=== PATIENT | female | born 1970 | race Two or more races ===

== ENCOUNTER 2022-04-25 12:18 | Inpatient (IN) | payer OTHER ==
[~2022-04-25] VITALS: Ht 154.9 cm; Wt 61.3 kg
[2022-04-25 13:38] LABS: Basophils # (auto) 0.1 10 ^3/uL (0-0.2); Basophils % (auto) 1.6 % (0.0-2.0); Eosinophils # (auto) 0.1 10 ^3/uL (0-0.8); Eosinophils % (auto) 0.7 % (0.0-7.0); Hematocrit 39.8 % (36.0-46.0); Hemoglobin 12.8 g/dL (12.2-16.2); Lymphocytes # (auto) 1.6 10 ^3/uL (0.4-5.4); Mean Corpuscular Hemoglobin 27.1 pg (28.0-32.0); Mean Corpuscular Hgb Conc. 32.3 g/dL (32.0-36.0); Mean Corpuscular Volume 83.8 fL (80.0-100.0); Monocytes # (auto) 0.4 10 ^3/uL (0-1.3); Monocytes % (auto) 4.7 % (0.0-12.0); Neutrophils # (auto) 5.6 10 ^3/uL (1.6-8.6); Red Blood Cells 4.74 10^6/uL (4.0-5.20); White Blood Cell 7.8 10^3/uL (4.4-10.8)
[2022-04-25 13:54] LABS: Albumin 4.1 g/dL (3.4-5.0); Calcium 9.4 mg/dL (8.5-10.1); Potassium 4.9 mmol/L (3.5-5.1)
[2022-04-25 13:57] LABS: BUN/Creatinine Ratio 26.8
[2022-04-25 14:03] LABS: Bilirubin, Total 0.3 mg/dL (0.2-1.0); Total Protein 7.8 g/dL (6.4-8.2)
[2022-04-25] MEDS ORDERED: KETOROLAC TROMETH 30 MG/ML 1ML VIAL IV ONE (17:00)
[2022-04-25] MEDS ORDERED: SODIUM CHLORIDE 0.9% 1,000 ML IV ONE ×2 (17:00)
[2022-04-25] MEDS ORDERED: TAMSULOSIN HYDROCHLORIDE 0.4 MG CAP PO ONE (17:00)
[2022-04-25] MEDS ORDERED: DOCUSATE SOD 100 MG CAP PO PRN (19:00)
[2022-04-25] MEDS ORDERED: LACTATED RINGER'S 1,000 ML IV ONE (19:00)
[2022-04-25] MEDS: HYDROmorphone HCL 2 MG/ML VL/or syr IV PRN (20:06)
[2022-04-25] MEDS: ONDANSETRON HCL 4 MG/2 ML VIAL IV PRN (20:11)
[2022-04-25 22:05] VITALS: BP 114/57
[2022-04-25] MEDS: SODIUM CHLOR 0.9% PF (SALINE LOCK) 10ML VIAL/SYR IV SCH (22:09)
[2022-04-25] MEDS ORDERED: METF-370 PO (22:22)
[2022-04-25] MEDS ORDERED: OMEP20TA PO (22:22)
[2022-04-25] MEDS ORDERED: ATOR10TA52 PO (22:22)
[2022-04-25] MEDS ORDERED: LISIPOW XX (22:22)
[2022-04-25] MEDS ORDERED: LEV50T PO (22:22)
[2022-04-25 23:17] LABS: Urine Bacteria NONE SEEN /hpf (None Seen); Urine Blood Negative /uL (Negative); Urine Mucus FEW (None Seen); Urine Specific Gravity 1.009 (1.001-1.035); Urine WBC 10 /hpf (0 - 5)
[2022-04-26] MEDS: HYDROmorphone HCL 2 MG/ML VL/or syr IV PRN ×2 (01:43→15:24)
[2022-04-26] MEDS: ONDANSETRON HCL 4 MG/2 ML VIAL IV PRN (03:28)
[2022-04-26 05:00] VITALS: BP 108/56
[2022-04-26] MEDS: SODIUM CHLOR 0.9% PF (SALINE LOCK) 10ML VIAL/SYR IV SCH ×3 (05:38→22:15)
[2022-04-26 09:00] VITALS: BP 114/68
[2022-04-26 13:00] VITALS: BP 102/57
[2022-04-26] MEDS: metFORMIN HYDROCHLORIDE 850 MG TAB PO SCH ×2 (14:53→22:00)
[2022-04-26] MEDS: D5W/SOD CHL 0.45%/KCL 20MEQ 1,000 ML IV SCH (15:23)
[2022-04-26 15:36] LABS: INR 1.03 (0.9-1.15); Partial Thromboplastin Time 27.9 sec (24.6-33.4)
[2022-04-26 16:27] VITALS: BP 108/72
[2022-04-26 16:32] VITALS: BP 125/72
[2022-04-26 22:00] VITALS: BP 130/64
[2022-04-26] MEDS: ATORVASTATIN 20 MG TAB PO SCH (22:20)
[2022-04-26] MEDS: HYDROcodone-ACET 5/325MG TAB PO PRN (22:28)
[2022-04-27] MEDS: D5W/SOD CHL 0.45%/KCL 20MEQ 1,000 ML IV SCH ×4 (00:12→23:44)
[2022-04-27] MEDS: ONDANSETRON HCL 4 MG/2 ML VIAL IV PRN (00:24)
[2022-04-27] MEDS: HYDROmorphone HCL 2 MG/ML VL/or syr IV PRN ×2 (00:25→13:57)
[2022-04-27 05:00] VITALS: BP 121/62
[2022-04-27] MEDS: metFORMIN HYDROCHLORIDE 850 MG TAB PO SCH ×3 (05:25→22:00)
[2022-04-27 06:30] LABS: Potassium 4.7 mmol/L (3.5-5.1)
[2022-04-27 06:39] LABS: BUN/Creatinine Ratio 11.1; Bilirubin, Total 0.4 mg/dL (0.2-1.0); Calcium 8.1 mg/dL (8.5-10.1); Total Protein 6.3 g/dL (6.4-8.2)
[2022-04-27] MEDS: SODIUM CHLOR 0.9% PF (SALINE LOCK) 10ML VIAL/SYR IV SCH ×3 (06:44→22:06)
[2022-04-27] MEDS: LEVOTHYROXINE SODIUM 25 MCG TAB PO SCH (06:55)
[2022-04-27 07:02] LABS: Basophils # (auto) 0.1 10 ^3/uL (0-0.2); Eosinophils # (auto) 0.1 10 ^3/uL (0-0.8); Eosinophils % (auto) 2.3 % (0.0-7.0); Hematocrit 33.8 % (36.0-46.0); Hemoglobin 11.5 g/dL (12.2-16.2); Lymphocytes % (auto) 34.6 % (10.0-50.0); Mean Corpuscular Hemoglobin 28.3 pg (28.0-32.0); Mean Corpuscular Hgb Conc. 33.9 g/dL (32.0-36.0); Mean Corpuscular Volume 83.4 fL (80.0-100.0); Monocytes # (auto) 0.3 10 ^3/uL (0-1.3); Monocytes % (auto) 5.6 % (0.0-12.0); Neutrophils # (auto) 3.2 10 ^3/uL (1.6-8.6); Neutrophils % (auto) 55.5 % (37.0-80.0); Red Blood Cells 4.05 10^6/uL (4.0-5.20); Red Cell Distribution Width 13.5 % (11.8-14.3); White Blood Cell 5.8 10^3/uL (4.4-10.8)
[2022-04-27 08:53] VITALS: BP 126/63
[2022-04-27] MEDS: PANTOPRAZOLE 40 MG TAB PO SCH (10:00)
[2022-04-27] MEDS: LISINOPRIL 5 MG TAB PO SCH (10:00)
[2022-04-27] MEDS: ACETAMINOPHEN 325 MG TAB PO PRN (12:58)
[2022-04-27 13:00] VITALS: BP 135/58
[2022-04-27 17:15] VITALS: BP 107/53
[2022-04-27] MEDS: ATORVASTATIN 20 MG TAB PO SCH (21:40)
[2022-04-27 22:00] VITALS: BP 114/67
[2022-04-28 04:40] VITALS: BP_SYST 113; BP_SYST 122; BP_DIAS 65; BP_DIAS 75
[2022-04-28] MEDS ORDERED: SUCCINYLCHOLINE CHLORIDE 20 MG/ML 10ML VIAL IV ONE (07:57)
[2022-04-28] MEDS ORDERED: ceFAZolin 1GM/50ML 100 ML IV ONE (08:05)
[2022-04-28] MEDS ORDERED: MIDAZOLAM HCL 2MG/2ML 2ml VIAL (1mg/ml) ONE (08:07)
[2022-04-28] MEDS ORDERED: fentaNYL CITRATE 100 MCG/2 ML VL ONE (08:07)
[2022-04-28] MEDS ORDERED: MEPERIDINE HCL (50 MG/ML) 1 ML VIAL ONE (08:07)
[2022-04-28] MEDS ORDERED: MIDAZOLAM HCL 2MG/2ML 2ml VIAL (1mg/ml) IV PRN (08:15)
[2022-04-28] MEDS ORDERED: LABETALOL HCL 5 MG/ML 4ML SYRINGE IV PRN (08:15)
[2022-04-28] MEDS ORDERED: ONDANSETRON HCL 4 MG/2 ML VIAL IV PRN (08:15)
[2022-04-28] MEDS ORDERED: ePHEDrine SULFATE 50 MG/ML AMP IV PRN (08:15)
[2022-04-28] MEDS ORDERED: HYDROmorphone HCL 2 MG/ML VL/or syr IV PRN (08:15)
[2022-04-28] MEDS ORDERED: MORPHINE SULFATE 4 MG/ML SYR/VIAL IV PRN (08:15)
[2022-04-28] MEDS ORDERED: LIDOCAINE 1%-Mpf/Epinephrine 1:200,000 ONE (08:19)
[2022-04-28] MEDS ORDERED: PROPOFOL 10 MG/ML 20 ML IV ONE (08:58)
[2022-04-28] MEDS ORDERED: DexAMETHasone SOD PHOS 10MG/1ML VIAL INJ ONE (08:58)
[2022-04-28 09:00] VITALS: BP 138/78
[2022-04-28] MEDS ORDERED: ONDANSETRON HCL 4 MG/2 ML VIAL ONE (09:06)
[2022-04-28] MEDS: SODIUM CHLOR 0.9% PF (SALINE LOCK) 10ML VIAL/SYR IV SCH ×3 (09:08→22:00)
[2022-04-28] MEDS ORDERED: ROCURONIUM 10MG/ML 10ML VIAL IV ONE (09:08)
[2022-04-28] MEDS: metFORMIN HYDROCHLORIDE 850 MG TAB PO SCH ×3 (09:08→21:38)
[2022-04-28] MEDS: LEVOTHYROXINE SODIUM 25 MCG TAB PO SCH (09:09)
[2022-04-28] MEDS: PANTOPRAZOLE 40 MG TAB PO SCH (10:00)
[2022-04-28] MEDS: LISINOPRIL 5 MG TAB PO SCH (10:00)
[2022-04-28] MEDS: D5W/SOD CHL 0.45%/KCL 20MEQ 1,000 ML IV SCH ×3 (10:02→21:48)
[2022-04-28] MEDS: HYDROmorphone HCL 2 MG/ML VL/or syr IV PRN ×3 (10:45→17:43)
[2022-04-28] MEDS: BUPIVACAINE 0.25% INJ 50ML VIAL ONE (12:40)
[2022-04-28] MEDS: HYDROcodone-ACET 5/325MG TAB PO PRN (13:24)
[2022-04-28] MEDS ORDERED: PHENYLEPHRINE HCL 10 MG/ML VL IV ONE (16:33)
[2022-04-28] MEDS ORDERED: GLYCOPYRROLATE 0.2 MG/ML 1ML VIAL IV ONE (16:33)
[2022-04-28] MEDS ORDERED: NEOSTIGMINE 1 MG/ML INJ (10mg/10ML VIAL) IV ONE (16:33)
[2022-04-28 17:00] VITALS: BP_SYST 137; BP_SYST 138; BP_DIAS 78; BP_DIAS 89
[2022-04-28] MEDS: ATORVASTATIN 20 MG TAB PO SCH (21:38)
[2022-04-28] MEDS: ONDANSETRON HCL 4 MG/2 ML VIAL IV PRN (21:48)
[2022-04-28 22:00] VITALS: BP 128/77
[2022-04-29] MEDS: HYDROcodone-ACET 5/325MG TAB PO PRN (02:30)
[2022-04-29 05:00] VITALS: BP 143/87
[2022-04-29] MEDS: LEVOTHYROXINE SODIUM 25 MCG TAB PO SCH (06:24)
[2022-04-29] MEDS: metFORMIN HYDROCHLORIDE 850 MG TAB PO SCH ×3 (06:24→21:28)
[2022-04-29] MEDS: SODIUM CHLOR 0.9% PF (SALINE LOCK) 10ML VIAL/SYR IV SCH ×3 (06:25→22:00)
[2022-04-29] MEDS: ACETAMINOPHEN 325 MG TAB PO PRN (06:32)
[2022-04-29] MEDS: HYDROmorphone HCL 2 MG/ML VL/or syr IV PRN ×2 (06:49→21:31)
[2022-04-29 06:51] LABS: Basophils # (auto) 0.1 10 ^3/uL (0-0.2); Basophils % (auto) 0.4 % (0.0-2.0); Eosinophils # (auto) 0 10 ^3/uL (0-0.8); Hematocrit 33.7 % (36.0-46.0); Hemoglobin 11.3 g/dL (12.2-16.2); Lymphocytes # (auto) 1.6 10 ^3/uL (0.4-5.4); Lymphocytes % (auto) 13.8 % (10.0-50.0); Mean Corpuscular Hgb Conc. 33.5 g/dL (32.0-36.0); Mean Corpuscular Volume 83.5 fL (80.0-100.0); Monocytes # (auto) 0.7 10 ^3/uL (0-1.3); Monocytes % (auto) 5.6 % (0.0-12.0); Neutrophils # (auto) 9.5 10 ^3/uL (1.6-8.6); Neutrophils % (auto) 80.2 % (37.0-80.0); Red Blood Cells 4.03 10^6/uL (4.0-5.20); White Blood Cell 11.8 10^3/uL (4.4-10.8)
[2022-04-29 08:47] VITALS: BP 119/63
[2022-04-29] MEDS: BUPIVACAINE 0.25% INJ 50ML VIAL ONE (08:54)
[2022-04-29] MEDS: LISINOPRIL 5 MG TAB PO SCH (10:00)
[2022-04-29] MEDS: D5W/SOD CHL 0.45%/KCL 20MEQ 1,000 ML IV SCH ×3 (10:15→21:29)
[2022-04-29 13:00] VITALS: BP_SYST 116; BP_SYST 122; BP_DIAS 74; BP_DIAS 84
[2022-04-29 17:07] VITALS: BP 120/70
[2022-04-29] MEDS: SUCRALFATE 1 GM TAB PO SCH (21:29)
[2022-04-29] MEDS: ATORVASTATIN 20 MG TAB PO SCH (21:29)
[2022-04-29] MEDS: PANTOPRAZOLE 40 MG TAB PO SCH (21:29)
[2022-04-29 22:00] VITALS: BP 138/69
[2022-04-30 05:00] VITALS: BP 144/73
[2022-04-30] MEDS: SODIUM CHLOR 0.9% PF (SALINE LOCK) 10ML VIAL/SYR IV SCH ×3 (06:00→22:13)
[2022-04-30 06:57] LABS: Basophils # (auto) 0.1 10 ^3/uL (0-0.2); Basophils % (auto) 1.1 % (0.0-2.0); Eosinophils # (auto) 0.1 10 ^3/uL (0-0.8); Eosinophils % (auto) 0.9 % (0.0-7.0); Hematocrit 34.7 % (36.0-46.0); Hemoglobin 11.4 g/dL (12.2-16.2); Lymphocytes # (auto) 1.7 10 ^3/uL (0.4-5.4); Lymphocytes % (auto) 20.4 % (10.0-50.0); Mean Corpuscular Hemoglobin 27.9 pg (28.0-32.0); Mean Corpuscular Hgb Conc. 32.8 g/dL (32.0-36.0); Mean Corpuscular Volume 84.9 fL (80.0-100.0); Monocytes # (auto) 0.5 10 ^3/uL (0-1.3); Neutrophils # (auto) 5.9 10 ^3/uL (1.6-8.6); Neutrophils % (auto) 71.6 % (37.0-80.0); Nucleated Red Blood Cells % 0.1 %; Red Blood Cells 4.08 10^6/uL (4.0-5.20); Red Cell Distribution Width 13.4 % (11.8-14.3); White Blood Cell 8.2 10^3/uL (4.4-10.8)
[2022-04-30] MEDS: LEVOTHYROXINE SODIUM 25 MCG TAB PO SCH (07:07)
[2022-04-30] MEDS: SUCRALFATE 1 GM TAB PO SCH ×4 (07:07→22:16)
[2022-04-30] MEDS: metFORMIN HYDROCHLORIDE 850 MG TAB PO SCH ×3 (07:07→21:56)
[2022-04-30 07:08] LABS: Albumin 2.7 g/dL (3.4-5.0); Calcium 8.3 mg/dL (8.5-10.1)
[2022-04-30 07:13] LABS: BUN/Creatinine Ratio 11.3; Bilirubin, Total 0.3 mg/dL (0.2-1.0); Total Protein 6.1 g/dL (6.4-8.2)
[2022-04-30] MEDS: ONDANSETRON HCL 4 MG/2 ML VIAL IV PRN (08:47)
[2022-04-30] MEDS: HYDROmorphone HCL 2 MG/ML VL/or syr IV PRN (08:48)
[2022-04-30] MEDS: PANTOPRAZOLE 40 MG TAB PO SCH ×2 (08:48→21:55)
[2022-04-30] MEDS: LISINOPRIL 5 MG TAB PO SCH (08:49)
[2022-04-30 08:54] VITALS: BP 142/75
[2022-04-30] MEDS ORDERED: METR500T PO (09:30)
[2022-04-30] MEDS ORDERED: LEVO500T31 PO (09:30)
[2022-04-30] MEDS ORDERED: HYDR-4902 PO (09:30)
[2022-04-30] MEDS ORDERED: SUCR1TAB PO (09:36)
[2022-04-30] MEDS ORDERED: PANT40T PO (09:36)
[2022-04-30] MEDS: D5W/SOD CHL 0.45%/KCL 20MEQ 1,000 ML IV SCH ×2 (10:25→17:24)
[2022-04-30] MEDS: SODIUM CHLORIDE 0.9% 1,000 ML IV SCH ×3 (11:03→17:24)
[2022-04-30 12:41] VITALS: BP 121/58
[2022-04-30] MEDS ORDERED: HYDROcodone-ACET 5/325MG TAB PO PRN (15:00)
[2022-04-30 16:55] VITALS: BP_SYST 124; BP_SYST 139; BP_DIAS 81; BP_DIAS 82
[2022-04-30] MEDS: ATORVASTATIN 20 MG TAB PO SCH (21:55)
[2022-04-30 22:00] VITALS: BP 148/75
[2022-05-01] MEDS: SODIUM CHLORIDE 0.9% 1,000 ML IV SCH ×2 (02:58→11:53)
[2022-05-01] MEDS: D5W/SOD CHL 0.45%/KCL 20MEQ 1,000 ML IV SCH ×2 (03:05→11:25)
[2022-05-01 05:00] VITALS: BP 143/77
[2022-05-01] MEDS: metFORMIN HYDROCHLORIDE 850 MG TAB PO SCH (05:58)
[2022-05-01] MEDS: SUCRALFATE 1 GM TAB PO SCH ×2 (05:58→11:56)
[2022-05-01] MEDS: SODIUM CHLOR 0.9% PF (SALINE LOCK) 10ML VIAL/SYR IV SCH (05:58)
[2022-05-01] MEDS: LEVOTHYROXINE SODIUM 25 MCG TAB PO SCH (05:58)
[2022-05-01 09:00] VITALS: BP 144/79
[2022-05-01] MEDS: LISINOPRIL 5 MG TAB PO SCH (10:05)
[2022-05-01] MEDS: PANTOPRAZOLE 40 MG TAB PO SCH (10:05)
[2022-05-01 13:00] VITALS: BP 140/76
== END 2022-05-01 14:20 | disposition home or self-care (01) | DRG 263 ==
LOC: ER 12:18 → OVERFLOW 18:57 → WEST WING 23:58
PROVIDERS: ADMIT Internal Medicine; ATTEND Family Medicine
PROC: 0FT40ZZ Resection of Gallbladder, Open Approach (ICD-10-PCS; principal; 2022-04-28 08:25)
DX: K80.10 Calculus of gallbladder with chronic cholecystitis without obstruction (principal); K85.90 Acute pancreatitis without necrosis or infection, unspecified; E11.9 Type 2 diabetes mellitus without complications; I10 Essential (primary) hypertension; K66.0 Peritoneal adhesions (postprocedural) (postinfection); N21.0 Calculus in bladder; Z83.3 Family history of diabetes mellitus; Z82.49 Family history of ischemic heart disease and other diseases of the circulatory system; Z87.442 Personal history of urinary calculi; Z20.822 Contact with and (suspected) exposure to COVID-19
CPT/HCPCS: 36415; 71045; 74176; 74181; 76705; 80053; 81001; 82247; 82962; 83605; 83690; 84702; 85025; 85610; 85730; 86850; 86900; 86901; 87040; 93005; 96361; 96374; 96375; G0378; J0330; J0690; J1100; J1885; J2250; J2405; J2704; J3490

== ENCOUNTER 2022-05-04 06:10 | Emergency (ER) | payer OTHER ==
[~2022-05-04] VITALS: Ht 157.5 cm; Wt 54.5 kg
[~2022-05-04 06:10] MED LIST: ATOR10TA52 PO; HYDR-4902 PO; LEV50T PO; LEVO500T31 PO; LISIPOW XX; METF-370 PO; METR500T PO; OMEP20TA PO; PANT40T PO; SUCR1TAB PO
[2022-05-04 06:47] LABS: Basophils # (auto) 0.1 10 ^3/uL (0-0.2); Eosinophils # (auto) 0.2 10 ^3/uL (0-0.8); Eosinophils % (auto) 3.2 % (0.0-7.0); Hematocrit 37.1 % (36.0-46.0); Hemoglobin 12.3 g/dL (12.2-16.2); Lymphocytes # (auto) 1.4 10 ^3/uL (0.4-5.4); Lymphocytes % (auto) 18.6 % (10.0-50.0); Mean Corpuscular Hemoglobin 27.4 pg (28.0-32.0); Mean Corpuscular Hgb Conc. 33.2 g/dL (32.0-36.0); Mean Corpuscular Volume 82.5 fL (80.0-100.0); Monocytes # (auto) 0.3 10 ^3/uL (0-1.3); Monocytes % (auto) 4.6 % (0.0-12.0); Neutrophils # (auto) 5.4 10 ^3/uL (1.6-8.6); Neutrophils % (auto) 72.6 % (37.0-80.0); Red Blood Cells 4.49 10^6/uL (4.0-5.20); Red Cell Distribution Width 13.1 % (11.8-14.3); White Blood Cell 7.4 10^3/uL (4.4-10.8)
[2022-05-04 07:03] LABS: Potassium 3.7 mmol/L (3.5-5.1)
[2022-05-04 07:10] LABS: Albumin 3.4 g/dL (3.4-5.0); Bilirubin, Total 0.4 mg/dL (0.2-1.0); Calcium 9.1 mg/dL (8.5-10.1); Total Protein 7.3 g/dL (6.4-8.2)
[2022-05-04 09:08] VITALS: BP 116/55
== END 2022-05-04 09:41 | disposition home or self-care (01) ==
LOC: ER 06:10
DX: I10 Essential (primary) hypertension (principal); E11.9 Type 2 diabetes mellitus without complications; Z90.49 Acquired absence of other specified parts of digestive tract; Z79.2 Long term (current) use of antibiotics; Z79.899 Other long term (current) drug therapy
CPT/HCPCS: 36415; 71045; 80053; 83880; 84484; 85025; 93005

== ENCOUNTER 2023-11-11 10:01 | Emergency (ER) | payer MEDICAID, OTHER ==
[~2023-11-11] VITALS: Ht 154.9 cm; Wt 60.7 kg
[2023-11-11 10:52] LABS: Basophils # (auto) 0.2 10 ^3/uL (0-0.2); Basophils % (auto) 2.9 % (0.0-2.0); Eosinophils # (auto) 0.1 10 ^3/uL (0-0.8); Eosinophils % (auto) 1.5 % (0.0-7.0); Hematocrit 40.7 % (36.0-46.0); Hemoglobin 13.5 g/dL (12.2-16.2); Lymphocytes # (auto) 1.6 10 ^3/uL (0.4-5.4); Lymphocytes % (auto) 26.6 % (10.0-50.0); Mean Corpuscular Hemoglobin 28.5 pg (28.0-32.0); Mean Corpuscular Hgb Conc. 33.1 g/dL (32.0-36.0); Monocytes # (auto) 0.3 10 ^3/uL (0-1.3); Monocytes % (auto) 5.6 % (0.0-12.0); Neutrophils # (auto) 3.8 10 ^3/uL (1.6-8.6); Neutrophils % (auto) 63.4 % (37.0-80.0); Nucleated Red Blood Cells % 0.1 %; Red Blood Cells 4.73 10^6/uL (4.0-5.20); Red Cell Distribution Width 13.3 % (11.8-14.3); White Blood Cell 5.9 10^3/uL (4.4-10.8)
[2023-11-11 11:08] LABS: INR 0.99 (0.9-1.15); Partial Thromboplastin Time 29.8 SEC (24.5-34.5); Prothrombin Time 10.4 sec (9.3-11.8)
[2023-11-11 11:10] LABS: Alanine Aminotransferase 37 U/L (7-40); Albumin 4.5 g/dL (3.2-4.8); Alkaline Phosphatase 106 U/L (46-116); Anion Gap 5 (5-15); Aspartate Aminotransferase 26 U/L (13-40); BUN/Creatinine Ratio 24.3 (10.0-20.0); Blood Urea Nitrogen 17 mg/dL (9-23); Calcium 9.3 mg/dL (8.7-10.4); Carbon Dioxide 28 mmol/L (20-30); Chloride 105 mmol/L (98-107); Glucose 190 mg/dL (74-106); Lipase 49 U/L (12-53); Potassium 3.9 mmol/L (3.5-5.1); Sodium 138 mmol/L (136-145)
[2023-11-11 11:11] LABS: Bilirubin, Total 0.6 mg/dL (0.2-1.0); Total Protein 7.1 g/dL (5.7-8.2)
[2023-11-11 13:23] VITALS: BP 120/54; PULSE 83; RESP 17; TEMP 97.7; O2SAT 96
== END 2023-11-11 13:24 | disposition home or self-care (01) ==
LOC: ER 10:01
DX: R10.31 Right lower quadrant pain (principal); E11.9 Type 2 diabetes mellitus without complications; I10 Essential (primary) hypertension; Z90.49 Acquired absence of other specified parts of digestive tract
CPT/HCPCS: 36415; 74176; 80053; 83605; 83690; 84484; 85025; 85610; 85730